=== PATIENT | male | born 1950 | race Caucasian/White ===

== ENCOUNTER 2020-05-29 12:51 | Emergency (ER) | payer MEDICARE ==
[2020-05-29] MEDS ORDERED: HYDROcodone/Acetaminophen 5/325 mg Tablet ONE (13:51)
[2020-05-29] MEDS ORDERED: Ketorolac Tromethamine 30 MG/ML VIAL ONE (13:51)
== END 2020-05-29 13:59 | disposition home or self-care (01) ==
LOC: ERS 12:51
DX: M54.42 Lumbago with sciatica, left side (principal); F17.220 Nicotine dependence, chewing tobacco, uncomplicated
CPT/HCPCS: 96372; 99283; J1885

== ENCOUNTER 2020-09-14 09:20 | Outpatient (CLI) | payer MEDICARE, OTHER ==
--- NOTE | 2020-09-14 10:36 | CT ---
CT Abdomen Pelvis W WO con: 09/14/2020 9:25 AM CLINICAL HISTORY: Prostate cancer. TECHNIQUE: Multiple contiguous axial images were obtained and a CT of the abdomen and pelvis without and with IV contrast. Postcontrast images were obtained in the nephrographic and excretory phases. Sagittal and coronal reformats were performed. COMPARISON: None. FINDINGS: Kidneys and Urinary Tract: Right kidney and ureter: Punctate calculi measuring up to 1 mm in size. No hydronephrosis or hydroure ter. No renal mass or other lesions. No urothelial lesions: no filling defect, dilation, stricture or wall thickening. Left kidney and ureter: Punctate calculi measuring up to 1 mm in size. No hydronephrosis or hydrouret er. No renal mass or other lesions. No urothelial lesions: no filling defect, dilation, stricture or wall thickening. Urinary bladder: Normal, no calculi, mass or other lesions. Remainder of Abdomen and Pelvis: Liver: Normal. Gallbladder and biliary system: Normal. No CT evident gallstones. No biliary ductal dilatation. Spleen: Normal. Pancreas: Normal. Adrenal glands: Normal. GI tract: Scattered diverticula in the colon. Normal small bowel and appendix. Abdominal aorta and its major branches: Atherosclerotic calcifications. No aneurysm. Peritoneum/retroperitoneum: Normal. No ascites. No adenopathy. Pelvic structures: Normal. No pelvic lymphadenopathy. Body wall and musculoskeletal: Degenerative changes are seen in the spine. Visualized lower thorax: Normal. No pulmonary parenchymal mass or pleural effusion. IMPRESSION: 1. Bilateral nonobstructing renal calculi 2. Diverticulosis
--- NOTE | 2020-09-14 13:09 | NM ---
WHOLE BODY BONE SCAN: HISTORY: Prostate cancer RADIOPHARMACEUTICAL: 31.8 mCi technetium-99m MDP injected intravenously. COMPARISON: None FINDINGS: There is increased uptake in the shoulders, wrists, and knees consistent with degenerative changes. No other abnormal areas of tracer localization seen in the skeleton to suggest metastatic disease. Tracer excretion through the kidneys is within normal limits. IMPRESSION: No scintigraphic evidence of osseous metastatic disease.
== END 2020-09-14 09:21 | disposition home or self-care (01) ==
LOC: CT 09:20
PROVIDERS: ATTEND Urology
DX: C61 Malignant neoplasm of prostate (principal); R82.998 Other abnormal findings in urine; N20.0 Calculus of kidney; K57.30 Diverticulosis of large intestine without perforation or abscess without bleeding; Z87.442 Personal history of urinary calculi; Z87.891 Personal history of nicotine dependence
CPT/HCPCS: 74178; 78306; 82565; A9503

== ENCOUNTER 2020-09-25 12:49 | Outpatient (CLI) | payer MEDICARE, OTHER ==
--- NOTE | 2020-09-26 08:53 | MRI ---
MR OF THE PELVIS WITH AND WITHOUT CONTRAST INDICATION: History of biopsy-proven prostate cancer with a PSA of 5.06 COMPARISON: None TECHNIQUE: Multiplanar, multisequence MR images were obtained of the pelvis with and without IV contr ast. 20 cc of MultiHance was utilized for the examination. The examination was reviewed on a separate [employer] 3-D workstation for multiplanar metric evaluation. FINDINGS: Prostate size: The prostate measured 5.2 x 3.6 x 4.0cm. 36.40 cc. Peripheral zone: No area of restricted diffusion is seen within the peripheral zone. Hemorrhage is pr esent within the peripheral zone of the prostate gland from the patient's biopsy. Central zone: No suspicious signal abnormality or focal lesion. Neural vasculature: No evidence of neurovascular invasion Regional lymphadenopathy: None Dynamic contrast enhancement: Negative. Osseous structures: There is heterogeneous red marrow signal seen within the visualized pelvic struct ures. Additional findings: There is colonic diverticulosis. No free fluid is identified.. IMPRESSION: 1. PIRADS 2- Low (clinically significant cancer is unlikely to be present.)
== END 2020-09-25 12:50 | disposition home or self-care (01) ==
LOC: TBSIIMAG 12:49
PROVIDERS: ATTEND Urology
DX: C61 Malignant neoplasm of prostate (principal)
CPT/HCPCS: 72197

== ENCOUNTER 2020-10-27 13:49 | Outpatient (CLI) | payer MEDICARE ==
--- NOTE | 2020-10-27 14:50 | CT ---
CT ABDOMEN AND PELVIS WITHOUT CONTRAST USING STONE PROTOCOL: 10/27/20 HISTORY: Prostate cancer, lower abdominal pain, renal calculi. COMPARISON: 09/14/20. In the absence of oral and IV contrast reduces the sensitivity of the exam particularly for evaluatio n of solid organs and bowel. There are mild dependent changes in the lung bases. No free air or free fluid is seen in the abdomen or pelvis. No calcified gallstones are present. There are vascular calcifications without evidence of aneurysmal dilatation of the abdominal aorta. There is chronic diverticulosis. The small bowel loops are not abnormally dilated. There are vascular calcifications without evidence of aneurysmal dilatat ion of the abdominal aorta. There are degenerative changes in the spine. Tiny calculi again seen it he kidneys bilaterally. No calculi noted in the ureters or the urinary felicity dder. No hydroureteronephrosis is seen on either side. IMPRESSION: 1. Bilateral nonobstructing tiny renal calculi. 2. Colonic diverticulosis. POS: [facility]
== END 2020-10-27 13:50 | disposition home or self-care (01) ==
LOC: BICCT 13:49
PROVIDERS: ATTEND Urology
DX: C61 Malignant neoplasm of prostate (principal); N20.0 Calculus of kidney; R10.30 Lower abdominal pain, unspecified; K57.30 Diverticulosis of large intestine without perforation or abscess without bleeding
CPT/HCPCS: 74176

== ENCOUNTER 2021-01-24 05:52 | Day surgery (SDC) | payer MEDICARE, OTHER ==
[2021-01-23 09:05] VITALS: BMI 31.4
[2021-01-24] MEDS ORDERED: Levofloxacin 500 mg/D5W 100 ml Premix Bag ONE (07:41)
[2021-01-24] MEDS ORDERED: Fentanyl 100 MCG/2 ML VIAL ONE (08:23)
[2021-01-24] MEDS ORDERED: Iothalamate Meglumine 60% 50 ML VIAL FS ONE (08:24)
[2021-01-24] MEDS ORDERED: Oxybutynin 5 MG TAB ONE (09:54)
[2021-01-24] MEDS ORDERED: Phenazopyridine HCl 100 MG TAB ONE (09:55)
[2021-01-24] MEDS ORDERED: ePHEDrine 50 MG/ML VIAL ONE (10:04)
[2021-01-24] MEDS ORDERED: PROPOFOL 200 MG/20 ML VIAL ONE (10:04)
[2021-01-24] MEDS ORDERED: Ondansetron PF 4 MG/2 ML Vial ONE (10:04)
[2021-01-24] MEDS ORDERED: Lidocaine 1% PF 5 ML VIAL ONE (10:04)
[2021-01-24] MEDS ORDERED: Dexamethasone 20 MG/5 ML VIAL ONE (10:04)
== END 2021-01-24 11:10 | disposition home or self-care (01) ==
LOC: SDC 05:52
PROVIDERS: ATTEND Urology
PROC: 0TND8ZZ Release Urethra, Via Natural or Artificial Opening Endoscopic (ICD-10-PCS; principal; 2021-01-24)
DX: N35.812 Other bulbous urethral stricture, male (principal); C61 Malignant neoplasm of prostate; N40.0 Benign prostatic hyperplasia without lower urinary tract symptoms; E78.00 Pure hypercholesterolemia, unspecified; M48.061 Spinal stenosis, lumbar region without neurogenic claudication; E78.2 Mixed hyperlipidemia; M54.16 Radiculopathy, lumbar region; Z87.891 Personal history of nicotine dependence; Z79.82 Long term (current) use of aspirin; Z79.899 Other long term (current) drug therapy
CPT/HCPCS: 51610; 74018; 74420; 74450; J1100; J1956; J2405; J2704; J3010; J3490